=== PATIENT | female | born 1955 | race Caucasian/White ===

== ENCOUNTER 2017-12-29 00:34 | Emergency (ER) | payer MEDICAID, OTHER | END 2017-12-29 02:30 | disposition home or self-care (01) | LOC: FTE 00:34 | DX: L98.9 Disorder of the skin and subcutaneous tissue, unspecified (principal); I10 Essential (primary) hypertension; E11.9 Type 2 diabetes mellitus without complications | CPT/HCPCS: 99282; Z7502 ==

== ENCOUNTER 2018-02-11 10:01 | Day surgery (SDC) | payer OTHER, MEDICAID ==
[2018-02-11] MEDS ORDERED: PROPOFOL 20 ML (11:40)
[2018-02-11] MEDS ORDERED: FENTAnyl 50 MCG/ML VIAL (11:40)
== END 2018-02-11 13:04 | disposition home or self-care (01) ==
LOC: GIL 10:01
DX: Z12.11 Encounter for screening for malignant neoplasm of colon (principal); K64.8 Other hemorrhoids; K57.90 Diverticulosis of intestine, part unspecified, without perforation or abscess without bleeding; E11.9 Type 2 diabetes mellitus without complications; I10 Essential (primary) hypertension; E78.5 Hyperlipidemia, unspecified
CPT/HCPCS: 45378; 82962

== ENCOUNTER 2018-07-24 09:13 | Day surgery (SDC) | payer OTHER ==
[2018-07-24] MEDS ORDERED: HYDROCODONE/APAP (5/325) TAB PO (12:00)
[2018-07-24] MEDS ORDERED: morphine 2 MG INJ IV (12:00)
[2018-07-24] MEDS ORDERED: ACETAMINOPHEN 325 MG TAB PO (12:00)
[2018-07-24] MEDS ORDERED: HYDROCODONE/APAP (5/325) TAB GTB (12:00)
[2018-07-24] MEDS ORDERED: ONDANSETRON 4 MG INJ IV ×2 (12:00→12:30)
[2018-07-24] MEDS ORDERED: LIDOCAINE 2% (SDV) 5 ML INJ (12:21)
[2018-07-24] MEDS ORDERED: MIDAZOLAM 1 MG/ML 2 ML INJ (12:21)
[2018-07-24] MEDS ORDERED: PROPOFOL 20 ML (12:22)
[2018-07-24] MEDS ORDERED: LABETALOL HCL 20MG INJ IV (12:30)
[2018-07-24] MEDS ORDERED: PROCHLORPERAZINE 10 MG INJ IV (12:30)
[2018-07-24] MEDS ORDERED: DIPHENHYDRAMINE 50 MG INJ IV (12:30)
[2018-07-24] MEDS ORDERED: MEPERIDINE 25 MG INJ IV (12:30)
[2018-07-24] MEDS ORDERED: FENTAnyl 50 MCG/ML VIAL IV (12:30)
[2018-07-24] MEDS ORDERED: hydrALAzine 20 MG INJ IV (12:30)
[2018-07-24] MEDS ORDERED: HYDROmorphONE 1 MG/5 ML IV SYRINGE IV (12:30)
[2018-07-24] MEDS: LIDOCAINE 1%/EPI (1:100,000) (MDV) 20 ML ×2 (12:34→13:20)
[2018-07-24] MEDS ORDERED: METOCLOPRAMIDE 10 MG INJ (12:36)
[2018-07-24] MEDS ORDERED: ONDANSETRON 4 MG INJ (12:36)
[2018-07-24] MEDS ORDERED: FAMOTIDINE 20 MG INJ (12:36)
[2018-07-24] MEDS ORDERED: OCULAR LUBRICANT 3.5 GM OPH OINT (12:38)
[2018-07-24] MEDS ORDERED: FENTAnyl 50 MCG/ML VIAL (12:40)
[2018-07-24] MEDS ORDERED: PHENYLephrine (100 MCG/ML) 10ML SYG (12:45)
[2018-07-24] MEDS ORDERED: EPHEDrine 25 MG/5 ML SYG (12:54)
[2018-07-24] MEDS: BACITRACIN 0.9 GM OINT (13:50)
[2018-07-24] MEDS: INSULIN ASPART [NOVOLOG] 3 ML PEN SC (14:53)
[2018-07-24] MEDS: HYDROmorphONE 1 MG/5 ML IV SYRINGE IV (14:55)
[2018-07-24] MEDS ORDERED: GLUCOSE GEL 15 GRAM TUBE PO ×2 (15:00)
[2018-07-24] MEDS ORDERED: GLUCOSE GEL 15 GRAM TUBE BUCCAL (15:00)
[2018-07-24] MEDS ORDERED: GLUCAGON 1 MG INJ IM (15:00)
[2018-07-24] MEDS ORDERED: DEXTROSE 50% 50 ML SYRINGE IV ×2 (15:00)
[2018-07-24] MEDS: OXYCODONE/ACETAMINOPHEN (5/325) TAB PO (15:55)
== END 2018-07-24 16:55 | disposition home or self-care (01) ==
LOC: SDS 09:13
DX: C44.1192 Basal cell carcinoma of skin of left lower eyelid, including canthus (principal); L57.8 Other skin changes due to chronic exposure to nonionizing radiation; I10 Essential (primary) hypertension; E11.9 Type 2 diabetes mellitus without complications; E78.5 Hyperlipidemia, unspecified
CPT/HCPCS: 14060; 82962; 88307; 88331